=== PATIENT | female | born 1975 | race Caucasian/White ===

== ENCOUNTER 2016-12-02 21:01 | Inpatient (IN) | payer MEDICAID ==
[~2016-12-02] VITALS: Ht 165.1 cm; Wt 57.3 kg
--- NOTE | 2016-12-02 21:05 | NUR ---
PT BIBA#39, PT STATED TO EMS SHE TOOK UNKNOWN AMOUNT OF TRAMADOL, PT IS SLURRING HER WORDS AND NOT MAKING COMPLETE SENTANCES, PT IS BREATYHING EFFORTLESSLY ON ROOM AIR, AIRWAY IS PROTECTED, PT ON MONITOR, IV PLACED PRIOR TO ARRIVAL BY EMS, PT AROUSIBLE TO PAIN, MD MADE AWARE WILL CONTINUE TO MONITOR.
[2016-12-02] MEDS ORDERED: NALOXONE PREFILLED SYRINGE 2 MG/2 ML SYRINGE ONE (21:25)
[2016-12-02] MEDS ORDERED: IV NS 0.9% 1,000 ML BAG IV ONE (21:30)
[2016-12-02] MEDS ORDERED: NALOXONE HCL 0.4 MG/ML AMPUL IV ONE (21:30)
[2016-12-02 21:35] LABS: BASOPHILS # (AUTO) 0.1 /CMM (0.0-0.2); EOSINOPHILS # (AUTO) 0.2 /CMM (0.0-0.7); EOSINOPHILS % (AUTO) 2.3 % (0.0-6.0); HEMATOCRIT 38 % (33-45); HEMOGLOBIN 12.7 g/dL (11.5-14.8); LYMPHOCYTES # (AUTO) 2.8 /CMM (0.8-4.8); MEAN CORPUSCULAR HEMOGLOBIN 33 PG (26.0-33.0); MEAN CORPUSCULAR HGB CONC 34 g/dl (31.0-36.0); MEAN CORPUSCULAR VOLUME 97 fL (82-100); MONOCYTES # (AUTO) 0.7 /CMM (0.1-1.30); MONOCYTES % (AUTO) 10.4 % (2.0-12.0); NEUTROPHILS # (AUTO) 3.3 /CMM (1.8-8.9); NEUTROPHILS % (AUTO) 46.3 % (43.0-81.0); PLATELET COUNT (AUTO) 304 /CMM (150-450); RDW COEFFICIENT OF VARIATION 12.7 (11.5-15.0); RED BLOOD CELL COUNT(AUTO) 3.89 MIL/uL (4.0-5.2); WHITE BLOOD COUNT (AUTO) 7.1 K/uL (4.3-11.0)
[2016-12-02 21:49] LABS: ALANINE AMINOTRANSFERASE 21 U/L (12-78); ALCOHOL, BLOOD 32 mg/dL (0-0); ALKALINE PHOSPHATASE 88 U/L (46-116); ASPARTATE AMINOTRANSFERASE 22 U/L (15-37); BILIRUBIN,DIRECT 0.1 mg/dL (0.0-0.2); BILIRUBIN,TOTAL 0.2 mg/dL (0.2-1.0); CALCIUM, SERUM 9.5 mg/dL (8.5-10.1); CARBON DIOXIDE 30 mmol/L (21-32); CHLORIDE 95 mmol/L (98-107); CREATININE 1.2 mg/dL (0.6-1.3); GLUCOSE 89 mg/dL (74-106); SODIUM SERUM 135 mmol/L (136-145); TOTAL PROTEIN, SERUM 7.6 g/dL (6.4-8.2); UREA NITROGEN, BLOOD 28 mg/dL (7-18)
[2016-12-02 21:51] LABS: ACETAMINOPHEN < 10 ug/ml (10-30); POTASSIUM 2.5 mmol/L (3.5-5.1); SALICYLATE 1.3 mg/dL (2.8-20.0)
--- NOTE | 2016-12-02 21:58 | NUR ---
STRAIGHT CATH DONE BY NANCY GRANADOS, PER MD ORDER, URINE COLLECTED AND SENT TO LAB WILL CONTINUE TO MONITOR.
[2016-12-02 22:00] VITALS: BP 99/70
--- NOTE | 2016-12-02 22:12 | NUR ---
CALLED DR KALEY ROCHE ON THE PHONE WITH DOCTOR OMER.
[2016-12-02 22:20] LABS: APPEARANCE,URINE CLEAR (CLEAR); BILIRUBIN,URINE NEGATIVE (NEGATIVE); BLOOD, URINE NEGATIVE Ery/uL (NEGATIVE); COLOR,URINE YELLOW (YELLOW); KETONES,URINE NEGATIVE (NEGATIVE); LEUKOCYTE ESTERASE ,URINE NEGATIVE (NEGATIVE); NITRITE, URINE NEGATIVE (NEGATIVE); PROTEIN,URINE NEGATIVE (NEGATIVE); UGLUCOSE NEGATIVE (NEGATIVE); UROBILINOGEN,URINE 0.2 EU/dL (0.2)
[2016-12-02] MEDS ORDERED: POTASSIUM CL. PREMIX PERIPHER. 50 ML ONE (22:26)
--- NOTE | 2016-12-02 22:34 | NUR ---
PT TO CT
[2016-12-02] MEDS: POTASSIUM CHLORIDE 10 MEQ/50 ML PREMIXED IVPB FOR PERIPHERAL LINE IV ONE (22:47)
[2016-12-02 23:00] VITALS: BP 99/70
--- NOTE | 2016-12-02 23:00 | NUR ---
LUKE RN NOTE ADMITTED 41 YEARS OLD FEMALE PT FROM ER WITH THE DX OF AMS BY DR ROCHE. PT IS LETHARGIC. AROUSABLE TO PAINFUL STIMULATION. NO SOB, NO DISTRESS OR DISCOMFORT NOTED. NO S/S OF PAIN NOTED. UNABLE TO GET ANY HISTORY FROM THE PT. SKIN INTACT. H/L IN RT HAND AND LT HAND INTACT AND PATENT. ON TELE SR 85. VSS. ADMITTING ORDERS CHECKED. SIDE RAILS UP X 3 AND CALL LIGHT WITHIN REACH. BED ALARM ON. CONTINUE TO MONITOR HER.
[2016-12-02] MEDS ORDERED: PANTOPRAZOLE 40 MG VIAL IV SCH (23:30)
[2016-12-02] MEDS ORDERED: Potassium Chloride 20 MEQ in IV D5/ 0.9% NACL 1,000 ML IV PRN (23:30)
[2016-12-03] VITALS: BP 95/63
--- NOTE | 2016-12-03 | NUR ---
LUKE RN NOTE PT ACCIDENTLY PULLED THE IV LINE OUT OF RT HAND. SECURED THE SITE WITH 2X2 GAUZE. RESUMED THE IVF ON LT HAND. NO S/S OF INFILTRATION NOTED.
[2016-12-03] MEDS ORDERED: POTASSIUM CL. PREMIX PERIPHER. 200 ML ONE (00:05)
[2016-12-03] MEDS ORDERED: POTASSIUM CL. PREMIX PERIPHER. 50 ML ONE (00:06)
[2016-12-03] MEDS ORDERED: IV PREMIX D5 NS + KCL 1,000 ML IV ONE (00:08)
[2016-12-03] MEDS ORDERED: PANTOPRAZOLE 40 MG VIAL ONE (00:22)
[2016-12-03] MEDS: POTASSIUM CHLORIDE 10 MEQ/50 ML PREMIXED IVPB FOR PERIPHERAL LINE IV ONE (00:29)
--- NOTE | 2016-12-03 00:29 | NUR ---
LUKE RN NOTE KCL 10 MEQ STARTED TO INFUSE OVER 1HR PER BAG. CONTINUE TO MONITOR HER.
--- NOTE | 2016-12-03 02:48 | NUR ---
LUKE RN NOTE PT STARTED TO TALK LITTLE BIT. KEPT ON MOVING HER ARMS. NOTED LT HAND IV SITE ALSO STARTED TO LEAK. STOPPED THE IVF. WILL TRY TO REINSERT NEW LINE.
[2016-12-03 04:00] VITALS: BP 86/57
--- NOTE | 2016-12-03 04:12 | NUR ---
LUKE RN NOTE CHARGE JOSE REINSERTED IV LINE #22 G IN LT HAND WITH GOOD BACK FLOW OF BLOOD, RESUMED IVF ORDERED. NO S/S OF INFILTRATION NOTED.
[2016-12-03] MEDS ORDERED: GABA600T PO (06:17)
[2016-12-03] MEDS ORDERED: ESCI10TA PO (06:17)
[2016-12-03] MEDS ORDERED: TOPI-37 PO (06:17)
[2016-12-03] MEDS ORDERED: CYCL5TAB PO (06:17)
[2016-12-03] MEDS ORDERED: DIPH25CA46 PO (06:17)
[2016-12-03] MEDS ORDERED: FURO-144 PO (06:17)
[2016-12-03] MEDS ORDERED: RISP1TAB27 PO (06:17)
--- NOTE | 2016-12-03 06:34 | NUR ---
LUKE RN NOTE PT IN BED ASLEEP, AROUSABLE. RESPONDS TO VERBAL COMMANDS, BUT STILL DROWSY. NO DISTRESS OR DISCOMFORT NOTED. DENIES PAIN. ON TELE SR HR 69. LAST BAG OF KCL 10 MEQ HANGED. TOTAL OF 6 BAGS OF KCL 10 MEQ GIVEN. EACH BAG IS INFUSED OVER 1 HR AT 50 ML/HR. PT TOLERATED WELL. PT IS NPO AND PT DID NOT URINATED DURING THE SHIFT. SIDE RAILS UP X 2 AND CALL LIGHT WITHIN REACH. WILL ENDORSE TO DAY SHIFT NURSE FOR CONTINUE TO CARE.
[2016-12-03 07:03] LABS: BASOPHILS % (AUTO) 0.4 % (0.0-2.0); EOSINOPHILS # (AUTO) 0.2 /CMM (0.0-0.7); EOSINOPHILS % (AUTO) 3.1 % (0.0-6.0); HEMATOCRIT 35 % (33-45); HEMOGLOBIN 11.8 g/dL (11.5-14.8); LYMPHOCYTES # (AUTO) 2.1 /CMM (0.8-4.8); LYMPHOCYTES % (AUTO) 34.4 % (20.0-44.0); MEAN CORPUSCULAR HEMOGLOBIN 33 PG (26.0-33.0); MEAN CORPUSCULAR HGB CONC 34 g/dl (31.0-36.0); MEAN CORPUSCULAR VOLUME 97 fL (82-100); MONOCYTES # (AUTO) 1.2 /CMM (0.1-1.30); MONOCYTES % (AUTO) 19.2 % (2.0-12.0); NEUTROPHILS # (AUTO) 2.6 /CMM (1.8-8.9); NEUTROPHILS % (AUTO) 42.9 % (43.0-81.0); PLATELET COUNT (AUTO) 240 /CMM (150-450); RDW COEFFICIENT OF VARIATION 13.1 (11.5-15.0); RED BLOOD CELL COUNT(AUTO) 3.58 MIL/uL (4.0-5.2)
[2016-12-03 07:23] LABS: ALBUMIN 3.4 g/dL (3.4-5.0); BILIRUBIN,TOTAL 0.2 mg/dL (0.2-1.0); CALCIUM, SERUM 8.7 mg/dL (8.5-10.1); MAGNESIUM 2.1 mg/dL (1.8-2.4); PHOSPHORUS 4.3 mg/dL (2.5-4.9); POTASSIUM 3.9 mmol/L (3.5-5.1); TOTAL PROTEIN, SERUM 6.7 g/dL (6.4-8.2)
--- NOTE | 2016-12-03 07:30 | NUR ---
RN NOTE RECEIVED REPORT FROM SAMPLE HAND RN, PT AT BEDSIDE UP WALKING, A LITTLE UNSTEADY, WANTS TO GO TO BATHROOM, CLAIMS SHE FEELS FINE, IV LEFT HAND, INTACT, ON HOSPICE MASSAGE THERAPIST, SR 79BPM, NO EDEMA, BELONGINGS AT BEDSIDE.
[2016-12-03 07:56] LABS: THYROID STIMULATING HORMONE 4.953 uIU/mL (0.358-3.74)
[2016-12-03 08:00] VITALS: BP 93/64
[2016-12-03 08:18] LABS: LYMPHOCYTES % (MANUAL) 41 % (16-48); MONOCYTES % (MANUAL) 15 % (0-11.0); NEUTROPHILS % (MANUAL) 44 (42-76)
[2016-12-03] MEDS ORDERED: ACETAMINOPHEN 325 MG TABLET PO PRN (09:30)
[2016-12-03] MEDS ORDERED: IV NS 0.9% 1,000 ML IV PRN (09:30)
[2016-12-03] MEDS ORDERED: HYDROCODONE/APAP 5/325MG 1 EACH TABLET PO PRN (09:30)
--- NOTE | 2016-12-03 10:00 | NUR ---
RN NOTE PT REFUSED CHEST X RAY CLAIMING THAT SHE IS LEAVING HOSPITAL SOON.
[2016-12-03 12:00] VITALS: BP 96/79
--- NOTE | 2016-12-03 12:18 | NUR ---
RN note patient discharge paperwork completed and discussed with the patient. pt acknowledges understanding. RN WILL CONTINUE TO FOLLOW ANTICIPATED DISCHARGE AT 1500. PT STABLE AT THIS TIME RN WILL CONTINUE TO FOLLOW
--- NOTE | 2016-12-03 12:30 | NUR ---
dust box worker met with patient at bedside. Patient was oriented x4. Patient's mood and affect were anxious. Patient was hyperverbal. Patient stated that she had just gotten discharged from [facility] [place] [address] [place] [address] ([phone]). Patient stated, "I lied about being suicidal because I knew I would get admitted that way and I wanted to detox." "I had been binge drinking." Per patient, she resides at a sober living facility called [address] [address] ([phone]) and stated she wants to be discharged to the sober living facility. Patient stated that her drug of choice is alcohol and stated that when she is intoxicated and someone offers her another drug she will do it. dust box worker asked patient if she wanted to go to treatment. Patient refused treatment and stated, "No I do not want treatment." Per patient, she currently does not have a source of income and her mother and friend Carlos Reaves ([phone]) are paying for the sober living. Patient has a follow-up appointment with psychiatrist Dr. Rsos ([phone]) and was referred to [facility] [address] [place], [place] meetings are held at 7:30 PM. dust box worker provided patient with resources to drug and alcohol treatment centers, AA meetings, and mental health services.
[2016-12-03] MEDS ORDERED: PANTOPRAZOLE 40 MG VIAL IV SCH (21:00)
== END 2016-12-03 15:43 | disposition home or self-care (01) | DRG 42 ==
LOC: ER 21:03 → TELE-TD 22:55
PROVIDERS: ADMIT Internal Medicine; ATTEND Internal Medicine
DX: G31.2 Degeneration of nervous system due to alcohol (principal); F99 Mental disorder, not otherwise specified; F10.10 Alcohol abuse, uncomplicated; F17.210 Nicotine dependence, cigarettes, uncomplicated; G89.4 Chronic pain syndrome; Y90.1 Blood alcohol level of 20-39 mg/100 ml
CPT/HCPCS: 36415; 70450-TC; 80048-TC; 80053-TC; 80076-TC; 80305; 81000-TC; 82962-TC; 83735-TC; 84100-TC; 84443-TC; 84703-TC; 85025-TC; 87081-TC; A4606; C9113; G0480; J3480; J3490; J7042; Z7610